=== PATIENT | male | born 1960 | race Caucasian/White ===

== ENCOUNTER 2017-01-22 17:57 | Inpatient (IN) | payer MEDICAID ==
[~2017-01-22] VITALS: Ht 180.3 cm; Wt 79.5 kg
[~2017-01-22 17:57] MED LIST: AMOXICILLIN 50500 MG PO; NO HOME MEDICATIONS; PERCOCET 325 MG1 TA2 PO; PREDNISONE20 MG PO; PROVENTIL0.09 MG/A1 IH
[2017-01-22 18:18] LABS: BASO % 0.4 % (0.0-2.0); EOS % 0.4 % (0-4.0); GRAN # 5.9 (1.4-6.5); GRAN % 83.3 % (42.2-75.2); HEMATOCRIT 34.9 % (42.0-52.0); HEMOGLOBIN 10.6 g/dl (13.5-18.0); LYMPH # 0.6 (1.2-3.4); LYMPH % 8.5 % (20.0-51.0); MEAN CELL VOLUME 67 fl (80.0-100.0); MEAN CORPUSCULAR HEMOGLOBIN 20 pg (27.0-31.0); MEAN CORPUSCULAR HGB CONC 30 g/dl (33.0-37.0); MEAN PLATELET VOLUME 8.4 fl (7.4-10.4); MONO # 0.5 (0.1-0.6); PLATELET COUNT 486 K/mm3 (130-400); RED BLOOD COUNT 5.19 M/mm3 (4.20-5.60); REDCELL DISTRIBUTION WIDTH-CV 19.7 % (11.5-14.5); WHITE BLOOD COUNT 7.1 K/mm3 (4.8-10.8)
[2017-01-22 18:30] LABS: ADJUSTED CALCIUM 8.8 mg/dL (8.4-10.2); ALANINE AMINOTRANSFERASE 70 U/L (21-72); ALKALINE PHOSPHATASE 146 U/L (50-136); ANION GAP 15 mmol/L (7-16); BILIRUBIN,TOTAL 1.1 mg/dL (0.0-1.0); BLOOD UREA NITROGEN 11 mg/dL (9-20); CALCIUM 9.6 mg/dL (8.4-10.2); CARBON DIOXIDE 22 mmol/L (22-30); CHLORIDE 93 mmol/L (98-107); CREATININE, serum 0.77 mg/dL (0.66-1.25); GLUCOSE 138 mg/dL (74-106); LIPASE 293 U/L (23-300); POTASSIUM 4.4 mmol/L (3.4-5.0); SODIUM 130 mmol/L (137-145); TOTAL PROTEIN 8.8 gm/dL (6.4-8.2)
[2017-01-22 18:31] LABS: C-REACTIVE PROTEIN < 0.5 mg/dL (0.0-0.9)
[2017-01-22 20:43] VITALS: BP 145/91; PULSE 92; TEMP 97.9
[2017-01-22 20:49] LABS: PH 5 (5-8); SQUAMOUS EPITHELIAL None Seen /hpf; URINE APPEARANCE Clear; URINE BACTERIA None Seen /hpf; URINE BILIRUBIN Negative (NEGATIVE); URINE BLOOD Negative (NEGATIVE); URINE COLOR Yellow; URINE GLUCOSE Negative (NEGATIVE); URINE KETONE 1+ (NEGATIVE); URINE RBC 0-2 /hpf; URINE UROBILINOGEN Negative (NEGATIVE); URINE WBC 0-2 /hpf
[2017-01-22 21:57] VITALS: BP 136/92; PULSE 96; TEMP 97.9
[2017-01-23] VITALS (12 sets, daily range): BP systolic 131–150; BP diastolic 70–90; PULSE 92–100; TEMP 97.8–98.3
[2017-01-23] MEDS ORDERED: PRIL40 PO (06:54)
[2017-01-23 07:40] LABS: BASO % 0.3 % (0.0-2.0); CALCIUM 8.7 mg/dL (8.4-10.2); CREATININE, serum 0.72 mg/dL (0.66-1.25); EOS # 0.2 (0.0-0.7); EOS % 2.5 % (0-4.0); GRAN # 6.1 (1.4-6.5); GRAN % 80.5 % (42.2-75.2); LYMPH # 0.7 (1.2-3.4); LYMPH % 8.8 % (20.0-51.0); MEAN CELL VOLUME 70 fl (80.0-100.0); MEAN CORPUSCULAR HGB CONC 29 g/dl (33.0-37.0); MEAN PLATELET VOLUME 9.3 fl (7.4-10.4); MONO # 0.6 (0.1-0.6); MONO % 7.6 % (1.7-9.3); PLATELET COUNT 486 K/mm3 (130-400); RED BLOOD COUNT 4.82 M/mm3 (4.20-5.60); REDCELL DISTRIBUTION WIDTH-CV 19.7 % (11.5-14.5); WHITE BLOOD COUNT 7.6 K/mm3 (4.8-10.8)
[2017-01-23 07:48] LABS: PROTHROMBIN TIME 11.5 SECONDS (9.7-12.8)
[2017-01-23 07:51] LABS: PARTIAL THROMBOPLASTIN TIME 31.8 SECONDS (26.0-37.0)
[2017-01-23 08:23] LABS: HEMATOCRIT 33.5 % (42.0-52.0); HEMOGLOBIN 9.8 g/dl (13.5-18.0); MEAN CORPUSCULAR HEMOGLOBIN 20 pg (27.0-31.0)
[2017-01-24] VITALS (8 sets, daily range): BP systolic 131–146; BP diastolic 81–93; PULSE 86–102; TEMP 97.5–99.5
[2017-01-24 07:18] LABS: CALCIUM 8.6 mg/dL (8.4-10.2); CREATININE, serum 0.81 mg/dL (0.66-1.25); POTASSIUM 3.9 mmol/L (3.4-5.0)
== END 2017-01-24 16:50 | disposition home or self-care (01) | DRG 389 ==
LOC: COL.ER 17:57 → SURG 19:34
PROVIDERS: Emergency Medicine; Surgery
DX: K56.5 Intestinal adhesions [bands] with obstruction (postinfection) (principal); K76.6 Portal hypertension; I85.10 Secondary esophageal varices without bleeding; F10.10 Alcohol abuse, uncomplicated; B19.20 Unspecified viral hepatitis C without hepatic coma; F17.210 Nicotine dependence, cigarettes, uncomplicated; F11.10 Opioid abuse, uncomplicated
CPT/HCPCS: J1170; J2405; J3411; J3475; J7030; Q9967

== ENCOUNTER 2019-09-05 14:40 | Emergency (ER) | payer SELFPAY ==
[~2019-09-05] VITALS: Ht 177.8 cm; Wt 79.5 kg
[~2019-09-05 14:40] MED LIST changes: +PRIL40 PO
[2019-09-05 14:41] VITALS: TEMP 98.4
[2019-09-05] MEDS ORDERED: PRINIVIL10 MG PO (16:08)
[2019-09-05] MEDS ORDERED: AMOXICILLIN 8751 TAB PO (16:08)
[2019-09-05 16:26] VITALS: BP 140/100; PULSE 98
== END 2019-09-05 16:26 | disposition home or self-care (01) ==
LOC: COL.ER 14:40
DX: R04.0 Epistaxis (principal); K21.9 Gastro-esophageal reflux disease without esophagitis; I10 Essential (primary) hypertension; F32.9 Major depressive disorder, single episode, unspecified

== ENCOUNTER → 2021-10-06 | Outpatient (CLI) | payer MEDICAID ==
[~2021-10-06] MED LIST changes: +AMOXICILLIN 8751 TAB PO; +PRINIVIL10 MG PO
[2021-10-06 16:09] LABS: BASO # 0.1 K/mm3 (0.0-0.2); BASO % 1.6 % (0.0-2.0); EOS # 0.2 K/mm3 (0.0-0.7); EOS % 4.7 % (0.0-4.0); GRAN # 1.9 K/mm3 (1.4-6.5); GRAN % 42.9 % (42.2-75.2); HEMATOCRIT 39.1 % (42.0-52.0); HEMOGLOBIN 12.7 g/dl (13.5-18.0); LYMPH # 1.8 K/mm3 (1.2-3.4); LYMPH % 39.2 % (20.0-51.0); MEAN CELL VOLUME 79 fl (80.0-100.0); MEAN CORPUSCULAR HEMOGLOBIN 26 pg (27-31); MEAN CORPUSCULAR HGB CONC 33 g/dl (33.0-37.0); MEAN PLATELET VOLUME 8.7 fl (7.4-10.4); MONO # 0.5 K/mm3 (0.1-0.6); MONO % 11.4 % (1.7-9.3); PLATELET COUNT 380 K/mm3 (130-400); RED BLOOD COUNT 4.97 M/mm3 (4.20-5.60); REDCELL DISTRIBUTION WIDTH-CV 17.7 % (11.5-14.5)
[2021-10-06 16:25] LABS: ALBUMIN 4.1 gm/dL (3.4-4.8); BILIRUBIN,TOTAL 0.9 mg/dL (0.2-1.2); CALCIUM 9.2 mg/dL (8.4-10.2); CHOLESTEROL RISK RATIO 2.9; CREATININE, serum 0.76 mg/dL (0.72-1.25); POTASSIUM 4.2 mmol/L (3.5-4.5); TOTAL PROTEIN 8.6 gm/dL (6.2-8.1)
[2021-10-06 16:45] LABS: TSH w REFLEX 2.282 uIU/mL (0.350-4.940)
[2021-10-06 16:58] LABS: HIV 1/2 Antibodies Non-Reactive; HIV-1p24 Antigen Non-Reactive
[2021-10-06 23:26] LABS: HEPATITIS B SURFACE ANTIBODY <2.0 (()); HEPATITIS B SURFACE ANTIGEN Negative (Negative)
[2021-10-07 01:23] LABS: HEPATITIS C VIRUS ANTIBODY Reactive (Negative)
== END ==
LOC: COL.LAB 15:33
PROVIDERS: Registered Nurse
DX: Z13.9 Encounter for screening, unspecified (principal); F41.9 Anxiety disorder, unspecified; Z79.899 Other long term (current) drug therapy

== ENCOUNTER 2023-06-01 10:57 | Outpatient (RCR) | payer MEDICAID ==
[2023-06-01] VITALS (9 sets, daily range): BP systolic 113–138; BP diastolic 75–88; PULSE 89–114; TEMP 97.8–99
[~2023-06-01] VITALS: Ht 177.8 cm; Wt 66.2 kg
[~2023-06-01 10:57] MED LIST changes: +AMBIEN 5MG TABLE5 MG PO; +SEROQUEL 2525 MG/TAB PO
[2023-06-01 14:50] LABS: HEMATOCRIT 22.1 % (42.0-52.0); HEMOGLOBIN 6.4 g/dl (13.5-18.0)
--- NOTE | 2023-06-01 14:53 | NUR ---
LAB CALLED THIS RN TO REPORT A HEMOGLOBIN OF 6.4 GM/DL. CRITICAL VALUE WAS REPORTED TO DR. FREDA ABRAHAM'S OFFICE AT 6002.
--- NOTE | 2023-06-01 15:59 | NUR ---
Nurse at Dr. Dodson's office returned call after this RN reported the critical hemoglobin of 6.4. Dr. Dodson's nurse stated that Dr. Dodson verbalized that he was fine with sending the patient home with a hemoglobin of 6.[address] Dodson did not state if he wanted the pt to recieve another infusion at this time.
--- NOTE | 2023-06-01 16:07 | NUR ---
pt tolerated second unit of PRBC well. pt remained free from signs and symptoms of hemolytic reaction and pt's vs remained within normal limits. iv was discontinued upon pt's discharge. pt was assisted to ER exit via wheelchair where ride was waiting for him. pt free from acute concerns and complaints upon discharge.
== END 2023-06-01 15:45 | disposition home or self-care (01) ==
LOC: EUO 10:57
PROVIDERS: Family Medicine
DX: D64.9 Anemia, unspecified (principal)
CPT/HCPCS: J7050; P9016

== ENCOUNTER → 2023-06-05 | Outpatient (CLI) | payer MEDICAID ==
[2023-06-05 14:41] LABS: INR 1.4 (0.8-3.0); PROTHROMBIN TIME 14.7 SECONDS (9.7-12.8)
[2023-06-05 14:44] LABS: PARTIAL THROMBOPLASTIN TIME 40.5 SECONDS (26.0-37.0)
[2023-06-05 14:48] LABS: ALBUMIN 3.2 gm/dL (3.4-4.8); BILIRUBIN,TOTAL 1.6 mg/dL (0.2-1.2); CALCIUM 8.4 mg/dL (8.4-10.2); CREATININE, serum 0.67 mg/dL (0.72-1.25); POTASSIUM 3.9 mmol/L (3.5-4.5); TOTAL PROTEIN 7.6 gm/dL (6.2-8.1)
[2023-06-05 14:53] LABS: HEMATOCRIT 25.4 % (42.0-52.0); HEMOGLOBIN 7.3 g/dl (13.5-18.0)
== END ==
LOC: COL.LAB 14:08
PROVIDERS: Surgery
DX: D64.9 Anemia, unspecified (principal)

== ENCOUNTER 2023-06-06 06:16 | Day surgery (SDC) | payer MEDICAID ==
[~2023-06-06] VITALS: Ht 180.3 cm; Wt 68.1 kg
[2023-06-06 08:11] VITALS: BP 137/80; PULSE 98; TEMP 97.8
[2023-06-06 08:25] VITALS: BP 101/61; PULSE 96; TEMP 97
--- NOTE | 2023-06-06 08:25 | NUR ---
PATIENT RETURNED TO BAY 6 AND AMBULATED TO CHAIR WITH STEADY GAIT. ALERT AND ORIENTED X3. DENIES PAIN, NAUSEA AND SHORTNESS OF BREATH. BREATHING REGULAR AND UNLABORED ON ROOM AIR. SKIN WARM AND DRY. SEE CHART FOR VITAL SIGNS. NURSE HANDOFF COMPLETED IN ROOM. DR. MELENDEZ MET WITH PATIENT IN ROOM TO DISCUSS PROCEDURE. DISCUSSED WITH DR. MELENDEZ PATIENTS REQUEST TO USE [facility] FOR TRANSPORTATION HOME. STATED PATIENT WAS FINE TO TAKE A [facility] HOME. PATIENT HAD JUICE, APPLESAUCE AND PUDDING. BOTH FOOD AND DRINK TOLERATED WELL. NO DYSPHAGIA. CALL LIGHT IN REACH.
[2023-06-06 08:30] VITALS: BP 124/84; PULSE 93
[2023-06-06 08:45] VITALS: BP 136/91; PULSE 95
[2023-06-06 08:59] VITALS: BP 140/83; PULSE 95
--- NOTE | 2023-06-06 09:08 | NUR ---
0859: DISCHARGE TEACHING COMPLETED WITH PRINTED EDUCATION, MENTAL HEALTH RESOURCE PAGE AND DISCHARGE INSTRUCTIONS SENT HOME WITH PATIENT. DISCUSSED WITH PATIENT MENTAL HEALTH RESOURCES AVAILABLE. PATIENT STATED THAT HE HAD NO INTENTION OR PLAN TO HARM HIMSELF, BUT THAT HE HAD HAD THOUGHTS OF SELF HARM AND WAS SEEING A PROVIDER REGULARLY REGARDING IT. PATIENT STATED HE FELT SAFE AT HOME AND VERBALIZED UNDERSTANDING OF TEACHING. DENIES PAIN, NAUSEA AND SHORTNESS OF BREATH. IV REMOVED. GAUZE AND COBAN PLACED OVER SITE. PATIENT DISCHARGED HOME VIA [facility] SERVICE (REGISTERED NURSE NURSERY: MAX).
== END 2023-06-06 09:08 | disposition home or self-care (01) ==
LOC: SDCO 06:16
DX: K22.70 Barrett's esophagus without dysplasia (principal); K21.00 Gastro-esophageal reflux disease with esophagitis, without bleeding; K22.89 Other specified disease of esophagus; K44.9 Diaphragmatic hernia without obstruction or gangrene; K92.0 Hematemesis; R63.4 Abnormal weight loss; D50.0 Iron deficiency anemia secondary to blood loss (chronic)
CPT/HCPCS: J2704; J7120

== ENCOUNTER → 2023-12-11 | Outpatient (CLI) | payer MEDICAID | LOC: MC.RAD 10:00 | DX: N62 Hypertrophy of breast (principal); N63.10 Unspecified lump in the right breast, unspecified quadrant ==